=== PATIENT | male | born 1945 | race Caucasian/White ===

== ENCOUNTER 2016-10-18 18:36 | Inpatient (IN) ==
[2016-10-18] MEDS ORDERED: methylPREDNISolone 125 MG/2 ML VIAL IVP ONE (18:40)
[2016-10-18] MEDS ORDERED: Ipratropium/Albuterol Neb 3 ML IH ONE (18:40)
--- NOTE | 2016-10-18 18:44 | Emergency Department Note ---
Disposition Clinical Impression: Acute exacerbation of chronic obstructive airways disease Leukocytosis Qualifiers: Leukocytosis type: unspecified Qualified Code(s): D72.829 - Elevated white blood cell count, unspecified Disposition: Admitted As Inpatient Condition: Fair [facility]errals: [facility] [Primary Care Provider[facility] - Forms: ED Satisfaction Letter Time of Disposition: 19:55 SOB HPI - General Chief Complaint: ED Shortness of Breath/Dyspnea Stated Complaint: MIA Time Seen by Provider: 10/18/16 18:40 Source: patient, EMS Mode of arrival: EMS Limitations: no limitations Nursing Notes Reviewed: Yes Vital Signs Reviewed: Yes - History of Present Illness 70-year-old with a history COPD comes in with increasing shortness of breath. The patient is oxygen dependent usually uses 2-3 L when the squad arrived they found him at 80% on 4 L. It bumped him up to 6 L and he went up to 97 to get a DuoNeb. Continues to have some shortness of breath but is improved from initial presentation. Pt Subjective Complaint: shortness of breath Onset (ago): hour(s) Severity: moderate Improves with: oxygen, bronchodilators Worsens with: exertion Known history of: COPD Associated symptoms: Reports: cough, wheezing Treatment prior to arrival: oxygen, bronchodilator Cough present: Yes Cough Description: Involuntary Cough Frequency: Intermittent - Related Data Home Medications Medication Instructions Recorded Confirmed ARIPiprazole [Abilify] 10 mg PO DAILY 01/29/15 01/29/15 Albuterol Sulfate [Proair HFA] 2 puff IH Q4HR 01/29/15 01/29/15 Aspirin Enteric Coated [Aspirin EC] 81 mg PO DAILY 01/29/15 01/29/15 Budesonide/Formoterol 160/4.5 1 puff IH BID 01/29/15 01/29/15 [Symbicort] Carvedilol [Coreg] 6.25 mg PO BID 01/29/15 01/29/15 Citalopram [CeleXA] 20 mg PO DAILY 01/29/15 01/29/15 ClonazePAM [Klonopin] 0.25 mg PO BID 01/29/15 01/29/15 Furosemide [Lasix] 20 mg PO DAILY 01/29/15 01/29/15 Lisinopril [Zestril] 5 mg PO DAILY 01/29/15 01/29/15 Nicotine Polacrilex [Nicorette] 2 mg BC Q2H 01/29/15 01/29/15 Simvastatin [Zocor] 20 mg PO QPM 01/29/15 01/29/15 Tiotropium [Spiriva] 18 mcg IH DAILY 01/29/15 01/29/15 Previous Rx's Medication Instructions Recorded Ibuprofen [Motrin] 600 mg PO TID PRN #30 tab 04/29/16 Allergies Allergy/AdvReac Type Severity Reaction Status Date / Time clozapine Allergy See Verified 01/29/15 15:43 Comments haloperidol Allergy See Verified 01/29/15 15:43 Comments thioridazine Allergy See Verified 01/29/15 15:43 Comments All systems ED: reviewed and negative except as stated. Constitutional: Denies: fever, chills, weakness, weight change Eyes: Denies: eye pain, eye discharge, vision change ENT ED: Denies: ear pain, throat pain, dental pain, hearing loss, epistaxis, congestion, dysphagia Cardiovascular: Denies: chest pain, palpitations, dyspnea on exertion, edema, syncope Respiratory: Reports: cough, dyspnea, wheezes. Denies: hemoptysis, stridor Gastrointestinal: Denies: abdominal pain, nausea, vomiting, diarrhea, constipation, hematemesis, melena, hematochezia Genitourinary: Denies: urgency, dysuria, frequency, hematuria Musculoskeletal: Denies: back pain, neck pain, arthralgia, myalgia Integumentary: Denies: rash, abrasion, lesions Neurological: Denies: headache, weakness, numbness, paresthesias, confusion, abnormal gait, vertigo Psychiatric: Denies: anxiety, depression, suicidal thoughts, homicidal thoughts , auditory hallucinations, visual hallucinations Endocrine: Denies: fatigue Hematological/Lymphatic: Denies: easy bleeding, easy bruising Allergic/Immunologic: Denies: facial swelling, urticaria Past Medical History - Past Medical History Medical history: Reports: cardiomyopathy, CHF, COPD, coronary artery disease, hypertension Surgical history: Reports: pacemaker/AICD, other Psychiatric history: Reports: anxiety - Social History Smoking Status: Light tobacco smoker Smokeless Tobacco Status: No Alcohol use: Reports: none Drug use: Reports: none Physical Exam - General Limitations: no limitations General appearance: alert, in no apparent distress - Head Head exam: atraumatic, normocephalic, normal inspection - Eye Eye exam: Present: normal appearance, PERRL, EOMI - ENT ENT exam: normal exam, normal oropharynx, mucous membranes moist - Neck Neck exam: Present: normal inspection, full ROM, trachea midline - Chest Chest inspection: Present: normal inspection, symmetric chest wall rise - Respiratory Respiratory exam: Present: wheezes - Cardiovascular Cardiovascular exam: Present: regular rate, normal rhythm, normal heart sounds - Abdominal Exam Abdominal exam: Present: soft, Non-Tender. Absent: tenderness, distention, guarding, rebound, rigidity - Extremities Exam Extremities exam: Present: normal inspection, full ROM. Absent: tenderness, pedal edema - Expanded Lower Extremity Exam Neurovascular/Tendon exam: Absent: motor deficit, sensory deficit, tendon deficit Gait: not tested/not observed - Back Exam Back exam: Present: normal inspection, full ROM. Absent: tenderness - Neurological Exam Neurological exam: Present: alert, oriented X3 - Psychiatric Psychiatric exam: Present: normal affect, normal mood - Skin Skin exam: Present: warm, dry, intact, normal color Course - Reevaluation(s) Reevaluation #1: 70-year-old comes in complaining of increasing shortness of breath and exacerbation of COPD. 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 Chest x-ray that showed chronic opacities. His BNP was elevated at 755. There certainly may be a component of some overload in his lungs. Patient was given Lasix. Patient was noted to have a white count of 31.5. Patient was given antibiotics and will be admitted. The patient states he was feeling more short of breath syringa a blood gas and BiPAP. Time: 19:53 Vital Signs Temperature 97.7 F 10/18/16 18:40 Pulse Rate 90 10/18/16 18:40 Respiratory Rate 20 10/18/16 18:40 Blood Pressure 144/79 10/18/16 18:40 O2 Sat by Pulse Oximetry 90 10/18/16 18:40 Temperature 97.7 F 10/18/16 18:40 Pulse Rate 90 10/18/16 18:40 Respiratory Rate 22 10/18/16 18:49 Blood Pressure 144/79 10/18/16 18:40 O2 Sat by Pulse Oximetry 90 10/18/16 18:49 Oxygen Delivery Oxygen Delivery Room Air,Nasal Cannula Shortness of Breath/Dyspnea - Lab Data Lab results reviewed: Yes I reviewed the patient's lab results. Result diagrams: 10/18/16 18:57 10/18/16 18:57 Lab Results 10/18/16 10/18/16 10/18/16 Range/Units 18:57 18:57 18:57 WBC 31.9 H* (4.3-11.1) K/mcL RBC 5.01 (4.19-5.50) M/mcL Hgb 14.6 (12.9-16.9) g/dL Hct 43.7 (37.5-50.1) % MCV 87.2 (83.0-100.0) fL MCH 29.1 (28.0-33.3) pg MCHC 33.4 (31.6-35.5) g/dL RDW 12.9 (11.5-14.5) % Plt Count 200 (140-400) K/mcL MPV 9.4 (9.4-12.4) fL Immature Gran % 0.8 (0-4) % Seg Neutrophils % 93.1 % Lymphocytes % 1.0 % Monocytes % 5.0 % Eosinophils % 0.0 % Basophils % 0.1 % Neutrophils # 29.7 H (1.6-8.9) K/mcL Lymphocytes # 0.3 L (0.6-4.6) K/mcL Monocytes # 1.6 H (0.0-1.3) K/mcL Eosinophils # 0.0 (0.0-0.6) K/mcL Basophils # 0.0 (0.0-0.2) K/mcL Platelet Estimate Normal (Normal) Immature Plt Fraction 5.5 (1.1-6.1) % PT (9.4-12.1) Seconds INR APTT (26.0-36.0) Seconds Sodium 128 L (136-145) mEq/L Potassium 4.2 (3.5-4.5) mEq/L Chloride 90 L (98-109) mEq/L Carbon Dioxide 29 (19-29) mEq/L BUN 16 (8-26) mg/dL Creatinine 0.74 (0.72-1.25) mg/dL Est GFR ( Amer) > 60 (> 60) Est GFR (Non-Af Amer) > 60 (> 60) BUN/Creatinine Ratio 22 (6-26) Glucose 129 H (70-99) mg/dL Calculated Osmolality 269 L (280-300) Lactic Acid 1.1 (0.5-2.2) mmol/L Calcium 9.0 (8.6-10.8) mg/dL Troponin I (0-0.03) ng/mL B-Natriuretic Peptide (0-100) pg/mL 10/18/16 10/18/16 10/18/16 Range/Units 18:57 18:57 18:57 WBC (4.3-11.1) K/mcL RBC (4.19-5.50) M/mcL Hgb (12.9-16.9) g/dL Hct (37.5-50.1) % MCV (83.0-100.0) fL MCH (28.0-33.3) pg MCHC (31.6-35.5) g/dL RDW (11.5-14.5) % Plt Count (140-400) K/mcL MPV (9.4-12.4) fL Immature Gran % (0-4) % Seg Neutrophils % % Lymphocytes % % Monocytes % % Eosinophils % % Basophils % % Neutrophils # (1.6-8.9) K/mcL Lymphocytes # (0.6-4.6) K/mcL Monocytes # (0.0-1.3) K/mcL Eosinophils # (0.0-0.6) K/mcL Basophils # (0.0-0.2) K/mcL Platelet Estimate (Normal) Immature Plt Fraction (1.1-6.1) % PT 12.1 (9.4-12.1) Seconds INR 1.1 APTT 28.0 (26.0-36.0) Seconds Sodium (136-145) mEq/L Potassium (3.5-4.5) mEq/L Chloride (98-109) mEq/L Carbon Dioxide (19-29) mEq/L BUN (8-26) mg/dL Creatinine (0.72-1.25) mg/dL Est GFR ( Amer) (> 60) Est GFR (Non-Af Amer) (> 60) BUN/Creatinine Ratio (6-26) Glucose (70-99) mg/dL Calculated Osmolality (280-300) Lactic Acid (0.5-2.2) mmol/L Calcium (8.6-10.8) mg/dL Troponin I 0.08 H* (0-0.03) ng/mL B-Natriuretic Peptide 755 H (0-100) pg/mL - Radiology Data Radiology results reviewed: Yes I reviewed the patient's radiology results. Chest X-Ray 10/18/16 18:40 IMPRESSION: 1. No acute cardiopulmonary process. 2. Chronic interstitial opacities within the lungs bilaterally. As well as chronic left basilar scarring. D/ / Gomez Leach MD / Gomez Leach MD Interpreting Provider: Gomez Leach MD - EKG Data EKG attestation: Yes I reviewed and interpreted this EKG. EKG results narrative: Paced rhythm When compared to previous EKG there are: no significant changes (01/29/2015) Interpretation: Reports: no acute changes Critical Care Time Critical Care Time: Yes Total Critical Care Time: 30 Attestation: The high probability of a clinically significant, sudden or life threatening deterioration of the [respiratory] system(s) required my full and direct attention, intervention and personal management. The aggregate critical care time was [30] minutes. This time is in addition to time spent performing reported procedures but includes the following: [x] Data Review and interpretation [x] Patient assessment and monitoring of vital signs [x] Documentation [x] Medication orders and management
[2016-10-18 19:04] LABS: Basophils % 0.1 %; Hematocrit 43.7 % (37.5-50.1); Hemoglobin 14.6 g/dL (12.9-16.9); Immature Granulocytes % 0.8 % (0-4); Immature Platelets 5.5 % (1.1-6.1); Lymphocytes # 0.3 K/mcL (0.6-4.6); Mean Corpuscular HGB Conc 33.4 g/dL (31.6-35.5); Mean Corpuscular Hemoglobin 29.1 pg (28.0-33.3); Mean Corpuscular Volume 87.2 fL (83.0-100.0); Mean Platelet Volume 9.4 fL (9.4-12.4); Monocytes # 1.6 K/mcL (0.0-1.3); Neutrophils # 29.7 K/mcL (1.6-8.9); Platelet Count 200 K/mcL (140-400); Red Blood Count 5.01 M/mcL (4.19-5.50); Red Cell Distribution Width 12.9 % (11.5-14.5); Segmented Neutrophils % 93.1 %
[2016-10-18 19:10] LABS: INR 1.1; Prothrombin Time 12.1 Seconds (9.4-12.1)
[2016-10-18] MEDS ORDERED: Piperacillin/Tazobactam 3.375 GM in D5% in Water (Mini-Bag+) 100 ML IVPB ONE (19:10)
[2016-10-18] MEDS ORDERED: Vancomycin 1,000 MG in D5% in Water 250 ML IVPB ONE (19:10)
[2016-10-18 19:17] LABS: BUN/Creatinine Ratio 22 (6-26); Blood Urea Nitrogen 16 mg/dL (8-26); Carbon Dioxide 29 mEq/L (19-29); Chloride 90 mEq/L (98-109); Glucose 129 mg/dL (70-99); Osmolality,Calculated 269 (280-300); Potassium 4.2 mEq/L (3.5-4.5); Sodium 128 mEq/L (136-145); eGFR For African Americans > 60 (> 60); eGFR For Non-African Americans > 60 (> 60)
[2016-10-18] MEDS ORDERED: Aspirin 81 MG TAB.CHEW PO STA (19:30)
[2016-10-18 19:33] LABS: Platelet Estimate Normal (Normal)
[2016-10-18] MEDS ORDERED: Furosemide 40 MG/4 ML VIAL IVP ONE (19:42)
[2016-10-18 20:27] LABS: ABG Base Excess 3.3 mEq/L (-2.0 to 3.0); ABG HCO3 31.4 mEQ/L (21-27); ABG Oxygen Saturation 89 % (95-98); ABG PCO2 61 mmHg (35-45); ABG PH 7.32 pH Units (7.32-7.45); ABG PO2 61 mmHg (85-104); ABG TCO2 33.3 mEq/L (20-26); Blood Gas FiO2 32 %; Blood Gas Liter Flow 3 L/MIN
[2016-10-18] MEDS ORDERED: Ondansetron 4 MG/2 ML VIAL IVP PRN (20:58)
[2016-10-18] MEDS ORDERED: Acetaminophen 325 MG TABLET PO PRN (20:58)
[2016-10-18] MEDS ORDERED: Naloxone 0.4 MG/ML INJ IVP PRN (20:58)
[2016-10-18] MEDS ORDERED: *HR* Morphine 2 MG/ML SYRINGE IVP PRN (20:58)
[2016-10-18] MEDS ORDERED: *HR* HYDROcodone/Acet 5/325 mg TABLET PO PRN (20:58)
--- NOTE | 2016-10-18 21:11 | Event Note ---
Date of Encounter: 10/18/16 Time of Encounter: 21:08 Patient seen and examined with nurse practitioner. Healthcare associated pneumonia and COPD exacerbation. Patient with accessory muscle use during my interview and strippers. Patient is in hypercapnic respiratory failure. Arterial blood gas shows pH 7.32, PCO2 60 PO2 60 saturation 89% soul will start BiPAP support. close Monitoring of respiratory status. He is full-code. Vancomycin and Zosyn for pneumonia. IV steroids and nebulizer treatments.
--- NOTE | 2016-10-18 21:28 | Internal Med History&Physical ---
Date of Encounter: 10/18/16 Time of Encounter: 20:15 Assessment and Plan (1) HAP (hospital-acquired pneumonia) Current visit: Yes Status: Acute Patient presents with suspected hospital-acquired pneumonia related to his living at a [place] facility. Upon admission to ED patient's WBC was 31.9. Patient also was hypercapnic and in respiratory failure. IV Zosyn and IV vancomycin administered and ED and will be continued with IV Zosyn 3.375 g every 6 and IV vancomycin with pharmacy dosing. Patient placed on BiPAP for respiratory support and will receive IV Solu-Medrol 60 mg every 6 and DuoNebs every 4. Follow-up labs and timed lactic acids ordered. (2) Hypercapnic respiratory failure Current visit: Yes Status: Acute Patient presents with acute hypercapnic respiratory failure related to acute exacerbation of COPD and current suspected hospital-acquired pneumonia. Patient placed on BiPap support due to ABGs showing pH of 7.32, PCO2 of 60, PO2 of 60, and SpO2 of 89%. Patient's current SpO2 with BiPap is 95%. IV Solu-Medrol 60 mg every 6 and DuoNeb every 4 ordered. Patient's vital signs and respiratory status to be monitored closely. Qualifiers: Chronicity: acute Qualified Code(s): J96.02 - Acute respiratory failure with hypercapnia (3) Acute exacerbation of chronic obstructive airways disease Current visit: Yes Status: Acute Patient presents with acute exacerbation of chronic obstructive airways disease. Patient is currently hypercapnic respiratory failure with BiPAP support required. IV Solu-Medrol 60 mg every 6 ordered. DuoNebs every 4 ordered. Patient's respiratory status and vital signs to be monitored closely. (4) Leukocytosis Current visit: Yes Status: Acute Patient presents with acute leukocytosis with WBC of 31.9 from initial blood draw in ED. Follow-up labs ordered to monitor patient's WBC. IV Zosyn and vancomycin ordered in ED and will be continued. Patient will be monitored for increased signs of infection and sepsis with sepsis protocol being followed. Qualifiers: Leukocytosis type: unspecified Qualified Code(s): D72.829 - Elevated white blood cell count, unspecified (5) CAD (coronary artery disease) Current visit: Yes Status: Chronic Patient presents with history of CAD and pacemaker/AICD placement. Due to patient's current altered status due to hypercapnic respiratory failure, cardiac history is unavailable for confirmation. Patient's initial troponin was 0.08 on admission to ED. Patient's troponins to be trended x2. Continuous cardiac telemetry ordered. Patient to be monitored closely. Qualifiers: Coronary Disease-Associated Artery/Lesion type: unspecified vessel or lesion type [place] vs. transplanted heart: [place] heart Associated angina: angina presence unspecified Qualified Code(s): I25.10 - Atherosclerotic heart disease of [place] coronary artery without angina pectoris (6) DVT prophylaxis Current visit: Yes Status: Acute Patient to be placed on DVT prophylaxis due to admission protocol and current bed rest status. Heparin 5,000 units SQ Q8 ordered. Internal Medicine - H&P: HPI Chief complaint: SOB/Dyspnea Admitted From: Emergency Dept Plans for Post Hospital Care: Home History of present illness: Mr. Wolfe is a 70 year old male who presents from the ED with chief complaint of shortness of breath and dyspnea. When the squad arrived to his residence, he was at 80% on SpO2 on 4L of O2. Patient is O2 dependent. The squad increased his O2 to 6L and O2 saturation improved to 97%. Patient continued to have shortness of breath and hypoxia on admission to the ED and was placed on BiPap support. Initial labs showed patient's WBC was 31.9. Patient is currently in hypercapnic respiratory failure and presents with suspected hospital-acquired pneumonia. 1-View CXR today shows chronic interstitial opacities within the lungs bilaterally as well as chronic left basilar scarring. ABGs show his pH as 7.32, PCO2 as 60, and PO2 as 60 with O2 saturation at 89%. Patient has a medical history of cardiomyopathy, CHF, COPD, CAD, and HTN. During examination, patient is altered due to hypercapnic status and answers minimally. Patient's initial troponin is 0.08. Patient is at high risk for respiratory failure based on current status and infection and will be placed as inpatient with continuation of BiPap. IV Zosyn and vancomycin administered in the ED and will be continued with IV Zosyn 3.375 gm Q6 and IV vancomycin with pharmacy dosing. Troponins to be trended x2. Continuous cardiac telemetry ordered. Timed lactic acids ordered. Follow-up labs ordered. Patient to receive IV solumedrol 60 mg Q6. Patient to be monitored closely for respiratory distress and cardiac symptoms. Time spent with patient 30 minutes. Past Med Surg Social Fam HX - Past Medical History Source: old records reviewed Medical history: cardiomyopathy, CHF, COPD, coronary artery disease, hypertension Psychiatric history: anxiety - Past Surgical History Surgical History: pacemaker/AICD, other - Social History Smoking Status: Light tobacco smoker Smokeless Tobacco Status: No Alcohol use: none Drug use: none Internal Medicine - H&P: Meds ARIPiprazole [Abilify] 10 mg PO DAILY 01/29/15 [History] Albuterol Sulfate [Proair HFA] 2 puff IH Q4HR 01/29/15 [History] Aspirin Enteric Coated [Aspirin EC] 81 mg PO DAILY 01/29/15 [History] Budesonide/Formoterol 160/4.5 [Symbicort] 1 puff IH BID 01/29/15 [History] Carvedilol [Coreg] 6.25 mg PO BID 01/29/15 [History] Citalopram [CeleXA] 20 mg PO DAILY 01/29/15 [History] ClonazePAM [Klonopin] 0.25 mg PO BID 01/29/15 [History] Furosemide [Lasix] 20 mg PO DAILY 01/29/15 [History] Lisinopril [Zestril] 5 mg PO DAILY 01/29/15 [History] Nicotine Polacrilex [Nicorette] 2 mg BC Q2H 01/29/15 [History] Simvastatin [Zocor] 20 mg PO QPM 01/29/15 [History] Tiotropium [Spiriva] 18 mcg IH DAILY 01/29/15 [History] Ibuprofen [Motrin] 600 mg PO TID PRN #30 tab 04/29/16 [Rx] Allergies clozapine Allergy (Verified 01/29/15 15:43) See Comments "Just dont agree with me" haloperidol Allergy (Verified 01/29/15 15:43) See Comments "Just dont agree with me" thioridazine Allergy (Verified 01/29/15 15:43) See Comments "Just dont agree with me" ROS unobtainable: due to mental status All Systems PM: A 10-system review of systems was performed and is negative for pertinent findings except as documented above in the HPI. - Constitutional Vitals: Temp Pulse Resp BP Pulse Ox 97.7 F 77 25 96/62 96 10/18/16 18:40 10/18/16 20:23 10/18/16 20:59 10/18/16 20:59 10/18/16 20:26 General appearance: Present: A&O X 0, severe distress (Respiratory ) - Head Head exam: Present: atraumatic, normocephalic - Eye Eye exam: Present: conjuntiva pink, sclera anicteric - ENT ENT exam: Present: normal exam - Neck Neck exam general surgery: Present: supple, trachea midline. Absent: lymphadenopathy - Respiratory Respiratory exam: Present: accessory muscle use, respiratory distress - Cardiovascular Cardiovascular exam: Present: RRR, +S1, +S2. Absent: diastolic murmur, gallop, rubs, systolic murmur - GI/Abdominal GI/Abdominal exam: Present: normal bowel sounds, soft, no peritoneal signs. Absent: distended, tenderness - Rectal Rectal exam: Present: deferred - Additional comments: exam deferred. - Extremities Exam Extremities exam: Present: warm, radial pulses palpable and symetrical - Neurological Exam Neurological exam: Present: altered - Skin Skin exam: Present: dry, intact Internal Med - H&P Results - Labs CBC & Chem 7: 10/18/16 18:57 10/18/16 18:57 - EKG Data Prior EKG available for review: yes When compared to previous EKG: there is no significant change EKG comments: 10/18/16 21:34 EKG dated 01/29/15 shows electronic atrial pacemaker electronic ventricular pacemaker. Abnormal rhythm ECG. EKG dated 10/18/16 shows electronic ventricular pacemaker with abnormal rhythm ECG - Diagnostic Studies Chest x-ray Additional comments: Impressions Chest X-Ray 10/18/16 18:40 IMPRESSION: 1. No acute cardiopulmonary process. 2. Chronic interstitial opacities within the lungs bilaterally. As well as chronic left basilar scarring. D/ / Gomez Leach MD / Gomez Leach MD Interpreting Provider: Gomez Leach MD
[2016-10-18] MEDS: *HR* Heparin 5,000 UNIT/ML VIAL SQ SCH (23:44)
[2016-10-18] MEDS: methylPREDNISolone 125 MG/2 ML VIAL IVP SCH (23:45)
[2016-10-19] MEDS: Ipratropium/Albuterol Neb 3 ML IH SCH ×6 (00:10→19:45)
[2016-10-19 01:45] LABS: Basophils % 0.1 %; Red Cell Distribution Width 13.1 % (11.5-14.5)
[2016-10-19 01:47] LABS: Hematocrit 39.6 % (37.5-50.1); Hemoglobin 13.2 g/dL (12.9-16.9); Immature Granulocytes % 1.4 % (0-4); Lymphocytes # 0.3 K/mcL (0.6-4.6); Lymphocytes % 0.9 %; Mean Corpuscular HGB Conc 33.3 g/dL (31.6-35.5); Mean Corpuscular Hemoglobin 29.7 pg (28.0-33.3); Mean Platelet Volume 10.1 fL (9.4-12.4); Monocytes # 0.7 K/mcL (0.0-1.3); Monocytes % 2.4 %; Neutrophils # 28.5 K/mcL (1.6-8.9); Platelet Count 186 K/mcL (140-400); Red Blood Count 4.45 M/mcL (4.19-5.50); Segmented Neutrophils % 95.2 %
[2016-10-19 02:00] LABS: BUN/Creatinine Ratio 20 (6-26); Blood Urea Nitrogen 20 mg/dL (8-26); Calcium 8.6 mg/dL (8.6-10.8); Carbon Dioxide 30 mEq/L (19-29); Chloride 90 mEq/L (98-109); Chol/HDL Ratio 2.7 (0-4.9); Cholesterol 168 mg/dL (< 200); Glucose 145 mg/dL (70-99); HDL Cholesterol 63 mg/dL (40-59); LDL Cholesterol,Calculated 95 mg/dL (0-99); Magnesium 1.8 mg/dL (1.6-2.6); Osmolality,Calculated 265 (280-300); Potassium 4.4 mEq/L (3.5-4.5); Sodium 125 mEq/L (136-145); Triglycerides 48 mg/dL (< 150); eGFR For African Americans > 60 (> 60); eGFR For Non-African Americans > 60 (> 60)
[2016-10-19 02:11] LABS: Platelet Estimate Normal (Normal)
[2016-10-19] MEDS: methylPREDNISolone 125 MG/2 ML VIAL IVP SCH ×3 (06:03→17:01)
[2016-10-19] MEDS: Piperacillin/Tazobactam 3.375 GM in D5% in Water (Mini-Bag+) 100 ML IVPB SCH ×4 (06:03→21:14)
[2016-10-19] MEDS: Pantoprazole 40 MG VIAL IVP SCH (08:19)
[2016-10-19] MEDS: *HR* Heparin 5,000 UNIT/ML VIAL SQ SCH ×2 (08:19→17:01)
[2016-10-19] MEDS: Vancomycin 1,250 MG in D5% in Water 250 ML IVPB SCH ×2 (08:20→22:31)
[2016-10-19] MEDS ORDERED: Ibuprofen 600 MG TABLET PO PRN (11:06)
[2016-10-19] MEDS ORDERED: Nitroglycerin 0.4 MG TAB.SUBL SL PRN (11:06)
[2016-10-19] MEDS ORDERED: (Aripiprazole [Abilify Maintena] 400 MG) IM SCH (11:15)
[2016-10-19] MEDS: Tiotropium 18 MCG inhalation IH SCH (11:17)
[2016-10-19] MEDS: clonazePAM 0.5 MG TABLET PO SCH ×2 (11:28→21:13)
[2016-10-19] MEDS: Loratadine 10 MG TABLET PO SCH (11:28)
[2016-10-19] MEDS: Furosemide 20 MG TABLET PO SCH (11:28)
[2016-10-19] MEDS: Aspirin Enteric Coated 81 MG Tablet PO SCH ×2 (11:29→11:33)
[2016-10-19] MEDS: ARIPiprazole 10 MG TABLET PO SCH (11:29)
[2016-10-19] MEDS: Budesonide/Formoterol 160/4.5 MDI IH SCH ×2 (11:39→19:45)
--- NOTE | 2016-10-19 12:26 | Electrocardiograph Report ---
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
[2016-10-19] MEDS ORDERED: Piperacillin/Tazobactam 3.375 GM in D5% in Water (Mini-Bag+) 100 ML IVPB SCH (16:00)
--- NOTE | 2016-10-19 18:46 | Internal Med Progress Note ---
Date of Encounter: 10/19/16 Time of Encounter: 18:44 - Assessment and plan (1) Acute exacerbation of chronic obstructive airways disease Current Visit: Yes Status: Acute (2) HAP (hospital-acquired pneumonia) Current Visit: Yes Status: Acute (3) Hypercapnic respiratory failure Current Visit: Yes Status: Acute Qualifiers: Chronicity: acute Qualified Code(s): J96.02 - Acute respiratory failure with hypercapnia (4) DVT prophylaxis Current Visit: Yes Status: Acute (5) CAD (coronary artery disease) Current Visit: Yes Status: Chronic Qualifiers: Coronary Disease-Associated Artery/Lesion type: unspecified vessel or lesion type [place] vs. transplanted heart: [place] heart Associated angina: angina presence unspecified Qualified Code(s): I25.10 - Atherosclerotic heart disease of [place] coronary artery without angina pectoris - Subjective Interval history: New patient. Mr. Chester Wolfe is a 70-year-old male Patient presents with suspected hospital-acquired pneumonia related to his living at [place]. Upon admission to ED patient's WBC was 31.9. Patient also was hypercapnic and in respiratory failure. IV Zosyn and IV vancomycin administered and ED and will be continued with IV Zosyn 3.375 g every 6 and IV vancomycin with pharmacy dosing. Patient placed on BiPAP for respiratory support and will receive IV Solu-Medrol 60 mg every 6 and DuoNebs every 4. Usually was put on BiPAP but this morning BiPAP has been DC'd and he seems to be breathing very well. His CBC and CMP to be repeated. His sodium has gone down therefore I will stop IV fluids and put him on fluid restriction as his osmolalities is pretty low. Troponin was borderline high but repeat troponin did go up and it seems segment ischemia. He should be covered with beta itz and aspirin. - Constitutional Vitals: Temp Pulse Resp BP Pulse Ox 98.1 F 76 17 118/70 90 10/19/16 17:25 10/19/16 17:25 10/19/16 17:25 10/19/16 17:25 10/19/16 17:25 General appearance: Present: A&O X 0, severe distress (Respiratory ) - Head Head exam: Present: atraumatic, normocephalic - Eye Eye exam: Present: PERRL, conjuntiva pink, sclera anicteric Pupils: Present: PERRL - Neck Neck exam general surgery: Present: supple, trachea midline. Absent: lymphadenopathy - Respiratory Respiratory exam: Present: CTAB. Absent: accessory muscle use, rales, rhonchi, wheezes - Cardiovascular Cardiovascular exam: Present: RRR, +S1, +S2. Absent: diastolic murmur, gallop, rubs, systolic murmur - GI/Abdominal GI/Abdominal exam: Present: normal bowel sounds, soft, no peritoneal signs. Absent: distended, tenderness - Extremities Exam Extremities exam: Present: warm, radial pulses palpable and symetrical. Absent : calf tenderness, cyanotic, pedal edema - Neurological Exam Neurological exam: Present: CN II-XII intact, oriented X3, no focal deficits. Absent: pronater drift, facial droop, speech deficit - Skin Skin exam: Present: dry, intact Internal Medicine: Result - Labs CBC & Chem 7: 10/19/16 01:24 10/19/16 01:24 Labs: Short CBC 10/19/16 Range/Units 01:24 WBC 29.9 H (4.3-11.1) K/mcL Hgb 13.2 (12.9-16.9) g/dL Hct 39.6 (37.5-50.1) % Plt Count 186 (140-400) K/mcL Neutrophils # 28.5 H (1.6-8.9) K/mcL BMP 10/19/16 01:24 Sodium 125 L Potassium 4.4 Chloride 90 L Carbon Dioxide 30 H BUN 20 Creatinine 1.01 Glucose 145 H Calcium 8.6 Cardiac Enzymes 10/19/16 10/19/16 Range/Units 01:24 07:51 Troponin I 0.06 H* 0.05 H* (0-0.03) ng/mL - ABG Interpretation ABG results: ABG ABG pH 7.32 pH Units (7.32-7.45) 10/18/16 20:12 ABG pCO2 61 mmHg (35-45) H 10/18/16 20:12 ABG pO2 61 mmHg (85-104) L 10/18/16 20:12 ABG O2 Saturation 89 % (95-98) L 10/18/16 20:12 PT/INR, D-dimer PT 12.1 Seconds (9.4-12.1) 10/18/16 18:57 Consult Discharge Plan - Plan Referrals: Herb Carrizales MD [Partnered Physician] - (CARDIOLOGY MAKES THEIR OWN APPOINTMENTS, THEY WILL CALL THE PATIENT AT HOME WITH HIS APPOINTMENT) [facility] [Primary Care Provider] - 10/29/16 10:15 am ([facility] TEAM)
[2016-10-19] MEDS ORDERED: *HR* HYDROcodone/Acet 5/325 mg TABLET PO PRN (21:20)
[2016-10-19] MEDS ORDERED: Vancomycin 1,000 MG in D5% in Water 250 ML IVPB SCH (22:00)
[2016-10-20] MEDS: *HR* Heparin 5,000 UNIT/ML VIAL SQ SCH ×4 (00:04→23:15)
[2016-10-20] MEDS: methylPREDNISolone 125 MG/2 ML VIAL IVP SCH ×5 (00:04→23:15)
[2016-10-20] MEDS: Ipratropium/Albuterol Neb 3 ML IH SCH ×7 (00:23→23:26)
[2016-10-20] MEDS: Piperacillin/Tazobactam 3.375 GM in D5% in Water (Mini-Bag+) 100 ML IVPB SCH ×3 (04:35→19:43)
[2016-10-20] MEDS: Pantoprazole 40 MG VIAL IVP SCH (07:29)
[2016-10-20] MEDS: ARIPiprazole 10 MG TABLET PO SCH (07:31)
[2016-10-20] MEDS: Furosemide 20 MG TABLET PO SCH (07:31)
[2016-10-20] MEDS: Aspirin Enteric Coated 81 MG Tablet PO SCH (07:31)
[2016-10-20] MEDS: clonazePAM 0.5 MG TABLET PO SCH ×2 (07:31→19:42)
[2016-10-20] MEDS: Loratadine 10 MG TABLET PO SCH (07:31)
[2016-10-20] MEDS: Budesonide/Formoterol 160/4.5 MDI IH SCH ×2 (08:05→19:57)
[2016-10-20] MEDS: Tiotropium 18 MCG inhalation IH SCH (08:09)
[2016-10-20] MEDS ORDERED: Albuterol 2.5 MG/3 ML NEBULIZER IH PRN (08:22)
[2016-10-20 08:31] LABS: Basophils % 0.1 %; Hematocrit 37.7 % (37.5-50.1); Hemoglobin 12.8 g/dL (12.9-16.9); Lymphocytes # 0.3 K/mcL (0.6-4.6); Lymphocytes % 1.5 %; Mean Corpuscular Hemoglobin 29.2 pg (28.0-33.3); Mean Corpuscular Volume 86.1 fL (83.0-100.0); Mean Platelet Volume 10.4 fL (9.4-12.4); Monocytes # 0.7 K/mcL (0.0-1.3); Platelet Count 198 K/mcL (140-400); Red Blood Count 4.38 M/mcL (4.19-5.50); Red Cell Distribution Width 13.1 % (11.5-14.5); Segmented Neutrophils % 94.4 %
[2016-10-20 08:36] LABS: Neutrophils # 21.2 K/mcL (1.6-8.9)
[2016-10-20 08:41] LABS: Albumin 2.4 g/dL (3.5-5.0); Albumin/Globulin Ratio 0.7 (1.1-2.2); Bilirubin,Total 0.6 mg/dL (0.2-1.2); Calcium 8.6 mg/dL (8.6-10.8); Globulin 3.3 g/dL (2.4-3.5); Potassium 4.4 mEq/L (3.5-4.5); Total Protein 5.7 g/dL (6.0-8.3)
[2016-10-20 08:53] LABS: Platelet Estimate Normal (Normal)
[2016-10-20] MEDS ORDERED: Vancomycin 1 EACH in D5% in Water 250 ML IVPB PRN (08:53)
--- NOTE | 2016-10-20 14:02 | Internal Med Progress Note ---
<Jacky House - Last Filed: 10/20/16 15:34> Date of Encounter: 10/20/16 Time of Encounter: 09:10 - Assessment and plan (1) HAP (hospital-acquired pneumonia) Current Visit: Yes Status: Acute Assessment and plan: Chest x-ray revealed chronic interstitial bases. Patient was started on vancomycin and Zosyn. On admission patient's white blood cell count was 31.9. He was hypercapnic respiratory failure. Patient has been placed on BiPAP for respiratory support and he will also receive IV Solu-Medrol 60 mg every 6 hours and DuoNeb's every 4 hours. Patient's oxygen saturation this morning was 93. (2) Hypercapnic respiratory failure Current Visit: Yes Status: Acute Assessment and plan: Patient presented with acute hypercapnic respiratory failure related to an acute exacerbation of COPD. -He currently has suspected hospital-acquired pneumonia. -He was placed on BiPAP support due to arterial blood gas showing the following : PH of 7.32, PCO2 60, PO2 of 60, and SPO2 of 89%. -Monitor patient's vital signs and respiratory status closely. Qualifiers: Chronicity: acute Qualified Code(s): J96.02 - Acute respiratory failure with hypercapnia (3) Leukocytosis Current Visit: Yes Status: Acute Assessment and plan: Patient presented to the hospital with acute leukocytosis with white blood cell count 31.9. -Continue to monitor patient's white blood cells. -Patient is currently on IV antibiotics Zosyn and vancomycin. -Continue to monitor patient for signs of infection or sepsis. -Patient's white blood cell count this morning is 29.9. -He did not have increased in temperature or decrease in blood pressure. Qualifiers: Leukocytosis type: unspecified Qualified Code(s): D72.829 - Elevated white blood cell count, unspecified (4) CAD (coronary artery disease) Current Visit: Yes Status: Chronic Assessment and plan: Patient presented with a history of coronary artery disease. Patient has a pacemaker. Qualifiers: Coronary Disease-Associated Artery/Lesion type: unspecified vessel or lesion type [place] vs. transplanted heart: [place] heart Associated angina: angina presence unspecified Qualified Code(s): I25.10 - Atherosclerotic heart disease of [place] coronary artery without angina pectoris (5) DVT prophylaxis Current Visit: Yes Status: Acute Assessment and plan: Patient will be placed on DVT prophylaxis due to admission protocol and bedrest status. -Heparin 5000 units SQ every 8 hours ordered. - Subjective Interval history: Patient was seen and examined at bedside this morning. He states that he feels much better than he did on admission. He currently denies having any shortness of breath, although he does have some residual cough. He does have some mucus production with this cough, which is white/yellow appearance. He denies having any chest pain, nausea, vomiting, fevers, chills, or weakness. - Constitutional Vitals: Temp Pulse Resp BP Pulse Ox 97.6 F 71 16 146/78 95 10/20/16 10:28 10/20/16 10:28 10/20/16 11:33 10/20/16 10:28 10/20/16 11:33 General appearance: Present: A&O X 0, severe distress (Respiratory ) - Head Head exam: Present: normocephalic - ENT ENT exam: Present: mucous membranes moist - Respiratory Respiratory exam: Present: wheezes. Absent: chest wall tenderness, decreased breath sounds, rales, respiratory distress, rhonchi, tachypnea Additional comments: Expiratory wheezes present bilaterally in all lung dave. - Cardiovascular Cardiovascular exam: Present: RRR, +S1, +S2. Absent: diastolic murmur, gallop, rubs, systolic murmur - Extremities Exam Extremities exam: Present: normal inspection. Absent: pedal edema Internal Medicine: Result - Labs CBC & Chem 7: 10/20/16 08:10 10/20/16 08:10 Labs: Short CBC 10/20/16 Range/Units 08:10 WBC 22.4 H (4.3-11.1) K/mcL Hgb 12.8 L (12.9-16.9) g/dL Hct 37.7 (37.5-50.1) % Plt Count 198 (140-400) K/mcL Neutrophils # 21.2 H (1.6-8.9) K/mcL BMP 10/20/16 08:10 Sodium 122 L Potassium 4.4 Chloride 88 L Carbon Dioxide 27 BUN 49 H D Creatinine 1.59 H D Glucose 150 H Calcium 8.6 Liver Function 10/20/16 Range/Units 08:10 Total Bilirubin 0.6 (0.2-1.2) mg/dL AST 79 H (5-34) Units/L ALT 28 (0-55) Units/L Alkaline Phosphatase 210 H (38-126) Units/L Albumin 2.4 L (3.5-5.0) g/dL - ABG Interpretation ABG results: ABG ABG pH 7.32 pH Units (7.32-7.45) 10/18/16 20:12 ABG pCO2 61 mmHg (35-45) H 10/18/16 20:12 ABG pO2 61 mmHg (85-104) L 10/18/16 20:12 ABG O2 Saturation 89 % (95-98) L 10/18/16 20:12 PT/INR, D-dimer PT 12.1 Seconds (9.4-12.1) 10/18/16 18:57 Consult Discharge Plan - Plan Referrals: Herb Carrizales MD [Partnered Physician] - (CARDIOLOGY MAKES THEIR OWN APPOINTMENTS, THEY WILL CALL THE PATIENT AT HOME WITH HIS APPOINTMENT) [place],PCP [Primary Care Provider] - 10/29/16 10:15 am ([facility] TEAM) <Vasile Castro - Last Filed: 10/20/16 16:16> Date of Encounter: 10/20/16 - Constitutional Vitals: Temp Pulse Resp BP Pulse Ox 97.7 F 71 18 157/80 95 10/20/16 15:14 10/20/16 15:14 10/20/16 15:14 10/20/16 15:14 10/20/16 15:14 Internal Medicine: Result - Labs CBC & Chem 7: 10/20/16 08:10 10/20/16 08:10 Labs: Short CBC 10/20/16 Range/Units 08:10 WBC 22.4 H (4.3-11.1) K/mcL Hgb 12.8 L (12.9-16.9) g/dL Hct 37.7 (37.5-50.1) % Plt Count 198 (140-400) K/mcL Neutrophils # 21.2 H (1.6-8.9) K/mcL BMP 10/20/16 08:10 Sodium 122 L Potassium 4.4 Chloride 88 L Carbon Dioxide 27 BUN 49 H D Creatinine 1.59 H D Glucose 150 H Calcium 8.6 Liver Function 10/20/16 Range/Units 08:10 Total Bilirubin 0.6 (0.2-1.2) mg/dL AST 79 H (5-34) Units/L ALT 28 (0-55) Units/L Alkaline Phosphatase 210 H (38-126) Units/L Albumin 2.4 L (3.5-5.0) g/dL - ABG Interpretation ABG results: ABG ABG pH 7.32 pH Units (7.32-7.45) 10/18/16 20:12 ABG pCO2 61 mmHg (35-45) H 10/18/16 20:12 ABG pO2 61 mmHg (85-104) L 10/18/16 20:12 ABG O2 Saturation 89 % (95-98) L 10/18/16 20:12 PT/INR, D-dimer PT 12.1 Seconds (9.4-12.1) 10/18/16 18:57 - Attending Attestation I examined this patient and my medical decision-making was reviewed with the Resident Physician on 10/20/16. I agree with the documented findings, disposition and treatment plan as described except to the extent set forth below. Seen and evaluated at bedside 70 M with Hypercapneic respiratory failure requiring BIPAP support on admission , secondary to HCAP and COPDE Looks much more improved upon exam this morning However, he has MONIQUE and supra-therapeutic Vanco, he also has chronic hyponatremia which has slightly worsened He has a PMH of Schizophrenia, COPD, CAD, and is a resident of a longterm Physical exam is unremarkable, except for bilateral diffuse expiratory wheezing labs and Imaging reviewed [facility]-JKjbrkictrse-Wxnnywwndgxmvvkf Vancomycin level-Hold Vancomycin, Give IVF, repeat chem to monitor sodium-goal correction is 4meq in 24hrs, Continue psych meds, send sputum culture Rest as in resident's documentation
[2016-10-20 16:14] LABS: Calcium 8.5 mg/dL (8.6-10.8); Potassium 4.6 mEq/L (3.5-4.5)
[2016-10-21] MEDS: Piperacillin/Tazobactam 3.375 GM in D5% in Water (Mini-Bag+) 100 ML IVPB SCH ×3 (03:47→19:48)
[2016-10-21] MEDS: Ipratropium/Albuterol Neb 3 ML IH SCH ×6 (04:00→23:51)
[2016-10-21 05:03] LABS: Basophils % 0.1 %; Hematocrit 37.5 % (37.5-50.1); Hemoglobin 12.8 g/dL (12.9-16.9); Immature Granulocytes % 1.2 % (0-4); Lymphocytes # 0.3 K/mcL (0.6-4.6); Lymphocytes % 1.4 %; Mean Corpuscular HGB Conc 34.1 g/dL (31.6-35.5); Mean Corpuscular Hemoglobin 29.3 pg (28.0-33.3); Mean Corpuscular Volume 85.8 fL (83.0-100.0); Mean Platelet Volume 10.5 fL (9.4-12.4); Monocytes # 1.1 K/mcL (0.0-1.3); Monocytes % 5.7 %; Neutrophils # 16.9 K/mcL (1.6-8.9); Platelet Count 204 K/mcL (140-400); Red Blood Count 4.37 M/mcL (4.19-5.50); Segmented Neutrophils % 91.6 %
[2016-10-21 05:20] LABS: Alanine Aminotransferase 32 Units/L (0-55); Albumin 2.4 g/dL (3.5-5.0); Albumin/Globulin Ratio 0.8 (1.1-2.2); Alkaline Phosphatase 227 Units/L (38-126); Aspartate Amino Transferase 54 Units/L (5-34); BUN/Creatinine Ratio 31 (6-26); Bilirubin,Total 0.3 mg/dL (0.2-1.2); Blood Urea Nitrogen 44 mg/dL (8-26); Calcium 8.7 mg/dL (8.6-10.8); Carbon Dioxide 31 mEq/L (19-29); Chloride 91 mEq/L (98-109); Globulin 3.1 g/dL (2.4-3.5); Glucose 129 mg/dL (70-99); Osmolality,Calculated 277 (280-300); Potassium 4.4 mEq/L (3.5-4.5); Sodium 127 mEq/L (136-145); Total Protein 5.5 g/dL (6.0-8.3); eGFR For African Americans > 60 (> 60); eGFR For Non-African Americans 50 (> 60)
[2016-10-21] MEDS: predniSONE 20 MG TABLET PO SCH (08:04)
[2016-10-21] MEDS: ARIPiprazole 10 MG TABLET PO SCH (08:05)
[2016-10-21] MEDS: Loratadine 10 MG TABLET PO SCH (08:06)
[2016-10-21] MEDS: Furosemide 20 MG TABLET PO SCH (08:06)
[2016-10-21] MEDS: clonazePAM 0.5 MG TABLET PO SCH ×2 (08:06→19:47)
[2016-10-21] MEDS: Aspirin Enteric Coated 81 MG Tablet PO SCH (08:07)
[2016-10-21] MEDS: *HR* Heparin 5,000 UNIT/ML VIAL SQ SCH ×2 (08:07→16:21)
[2016-10-21] MEDS: Budesonide/Formoterol 160/4.5 MDI IH SCH ×2 (08:26→20:15)
[2016-10-21] MEDS ORDERED: Vancomycin 1,250 MG in D5% in Water 250 ML IVPB SCH (11:00)
[2016-10-21] MEDS: Vancomycin 1,000 MG in D5% in Water 250 ML IVPB SCH (11:10)
--- NOTE | 2016-10-21 13:04 | Internal Med Progress Note ---
<Jacky House - Last Filed: 10/21/16 15:34> Date of Encounter: 10/21/16 Time of Encounter: 09:00 - Assessment and plan (1) HAP (hospital-acquired pneumonia) Current Visit: Yes Status: Acute Assessment and plan: Chest x-ray revealed chronic interstitial bases. Patient was started on vancomycin and Zosyn. On admission patient's white blood cell count was 31.9. His white blood cell count has vastly improved. This morning blood cell count was 18.5. He was hypercapnic respiratory failure. Patient has been placed on BiPAP for respiratory support and he will also receive IV Solu-Medrol 60 mg every 6 hours and DuoNeb's every 4 hours. Patient's oxygen saturation this morning was 93. (2) Hypercapnic respiratory failure Current Visit: Yes Status: Acute Assessment and plan: Patient presented with acute hypercapnic respiratory failure related to an acute exacerbation of COPD. -He currently has suspected hospital-acquired pneumonia. -He was placed on BiPAP support due to arterial blood gas showing the following : PH of 7.32, PCO2 60, PO2 of 60, and SPO2 of 89%. -Monitor patient's vital signs and respiratory status closely. Qualifiers: Chronicity: acute Qualified Code(s): J96.02 - Acute respiratory failure with hypercapnia (3) Leukocytosis Current Visit: Yes Status: Acute Assessment and plan: Patient presented to the hospital with acute leukocytosis with white blood cell count 31.9. -Continue to monitor patient's white blood cells. -Patient is currently on IV antibiotics. Was on both Zosyn and vancomycin. Yesterday developed acute renal failure, possibly secondary to vancomycin use. Vancomycin was held. -Continue to monitor patient for signs of infection or sepsis. -Patient's white blood cell count this morning is 18.5. -He did not have increased in temperature or decrease in blood pressure. Qualifiers: Leukocytosis type: unspecified Qualified Code(s): D72.829 - Elevated white blood cell count, unspecified (4) CAD (coronary artery disease) Current Visit: Yes Status: Chronic Assessment and plan: Patient presented with a history of coronary artery disease. Patient has a pacemaker. Qualifiers: Coronary Disease-Associated Artery/Lesion type: unspecified vessel or lesion type [place] vs. transplanted heart: [place] heart Associated angina: angina presence unspecified Qualified Code(s): I25.10 - Atherosclerotic heart disease of [place] coronary artery without angina pectoris (5) DVT prophylaxis Current Visit: Yes Status: Acute Assessment and plan: Patient will be placed on DVT prophylaxis due to admission protocol and bedrest status. -Heparin 5000 units SQ every 8 hours ordered. (6) Hypertension Current Visit: Yes Status: Acute Assessment and plan: Patient's blood pressure has increased since admission. -This morning blood pressure was 161/87. -Patient takes several blood pressure medications at home. -Blood pressure medications were held. -One or more blood pressure meds will be resumed. Qualifiers: Qualified Code(s): I10 - Essential (primary) hypertension - Subjective Interval history: Patient was seen and examined at bedside this morning. He states that he feels much better than he did on admission. He currently denies having any shortness of breath, although he does have some residual cough. He does have some mucus production with this cough, which is white/yellow appearance. He denies having any chest pain, nausea, vomiting, fevers, chills, or weakness. - Constitutional Vitals: Temp Pulse Resp BP Pulse Ox 97.8 F 81 17 149/79 93 10/21/16 11:14 10/21/16 11:14 10/21/16 11:30 10/21/16 11:14 10/21/16 11:30 - Head Head exam: Present: atraumatic, normocephalic - Neck Neck exam general surgery: Present: supple, trachea midline. Absent: lymphadenopathy - Respiratory Respiratory exam: Present: wheezes. Absent: accessory muscle use, rales, rhonchi Additional comments: Mild expiratory wheezes present bilaterally. - Cardiovascular Cardiovascular exam: Present: RRR, +S1, +S2. Absent: diastolic murmur, gallop, rubs, systolic murmur - GI/Abdominal GI/Abdominal exam: Present: normal bowel sounds, soft, no peritoneal signs. Absent: distended, tenderness - Skin Skin exam: Present: dry, intact Internal Medicine: Result - Labs CBC & Chem 7: 10/21/16 04:41 10/21/16 04:41 Labs: Short CBC 10/21/16 Range/Units 04:41 WBC 18.5 H (4.3-11.1) K/mcL Hgb 12.8 L (12.9-16.9) g/dL Hct 37.5 (37.5-50.1) % Plt Count 204 (140-400) K/mcL Neutrophils # 16.9 H (1.6-8.9) K/mcL BMP 10/20/16 10/21/16 15:52 04:41 Sodium 124 L 127 L Potassium 4.6 H 4.4 Chloride 89 L 91 L Carbon Dioxide 29 31 H BUN 48 H 44 H Creatinine 1.51 H 1.41 H Glucose 136 H 129 H Calcium 8.5 L 8.7 Liver Function 10/21/16 Range/Units 04:41 Total Bilirubin 0.3 (0.2-1.2) mg/dL AST 54 H (5-34) Units/L ALT 32 (0-55) Units/L Alkaline Phosphatase 227 H (38-126) Units/L Albumin 2.4 L (3.5-5.0) g/dL - ABG Interpretation ABG results: ABG ABG pH 7.32 pH Units (7.32-7.45) 10/18/16 20:12 ABG pCO2 61 mmHg (35-45) H 10/18/16 20:12 ABG pO2 61 mmHg (85-104) L 10/18/16 20:12 ABG O2 Saturation 89 % (95-98) L 10/18/16 20:12 PT/INR, D-dimer PT 12.1 Seconds (9.4-12.1) 10/18/16 18:57 Consult Discharge Plan - Plan Referrals: Herb Carrizales MD [Partnered Physician] - (CARDIOLOGY MAKES THEIR OWN APPOINTMENTS, THEY WILL CALL THE PATIENT AT HOME WITH HIS APPOINTMENT) [place],PCP [Primary Care Provider] - 10/29/16 10:15 am ([facility] TEAM) <Vasile Castro - Last Filed: 10/21/16 16:39> Date of Encounter: 10/21/16 - Constitutional Vitals: Temp Pulse Resp BP Pulse Ox 97.5 F L 74 18 142/82 94 10/21/16 15:27 10/21/16 15:27 10/21/16 15:27 10/21/16 15:27 10/21/16 15:27 Internal Medicine: Result - Labs CBC & Chem 7: 10/21/16 04:41 10/21/16 04:41 Labs: Short CBC 10/21/16 Range/Units 04:41 WBC 18.5 H (4.3-11.1) K/mcL Hgb 12.8 L (12.9-16.9) g/dL Hct 37.5 (37.5-50.1) % Plt Count 204 (140-400) K/mcL Neutrophils # 16.9 H (1.6-8.9) K/mcL BMP 10/21/16 04:41 Sodium 127 L Potassium 4.4 Chloride 91 L Carbon Dioxide 31 H BUN 44 H Creatinine 1.41 H Glucose 129 H Calcium 8.7 Liver Function 10/21/16 Range/Units 04:41 Total Bilirubin 0.3 (0.2-1.2) mg/dL AST 54 H (5-34) Units/L ALT 32 (0-55) Units/L Alkaline Phosphatase 227 H (38-126) Units/L Albumin 2.4 L (3.5-5.0) g/dL - ABG Interpretation ABG results: ABG ABG pH 7.32 pH Units (7.32-7.45) 10/18/16 20:12 ABG pCO2 61 mmHg (35-45) H 10/18/16 20:12 ABG pO2 61 mmHg (85-104) L 10/18/16 20:12 ABG O2 Saturation 89 % (95-98) L 10/18/16 20:12 PT/INR, D-dimer PT 12.1 Seconds (9.4-12.1) 10/18/16 18:57 - Attending Attestation I examined this patient and my medical decision-making was reviewed with the Resident Physician on 10/21/16. I agree with the documented findings, disposition and treatment plan as described except to the extent set forth below. Seen and evaluated at bedside 70 M with Hypercapneic respiratory failure requiring BIPAP support on admission , secondary to HCAP and COPDE Looks much more improved upon exam this morning, denies new complains. However, on 10/20, he developed MONIQUE and supra-therapeutic Vanco level, he also has chronic hyponatremia which slightly worsened. He was given 500cc saline. His kidney function today has improved, he is receiving vancomycin at renal doses, and Zosyn. Prelim sputum culture unremarkable. His leukocytosis is improving He has a PMH of Schizophrenia, COPD, CAD, and is a resident of a [place] [facility] Physical exam is unremarkable, except for bilateral diffuse expiratory wheezing Labs and Imaging reviewed Hypercapneic respiratory failure improved, HCAP on treatment, MONIQUE-Hyponatremia- Supratherapeutic Vancomycin level-Improved. Resume blood pressure medications Rest as in resident's documentation
[2016-10-21] MEDS: amLODIPine 5 MG TABLET PO SCH (17:11)
[2016-10-22] MEDS: *HR* Heparin 5,000 UNIT/ML VIAL SQ SCH ×3 (00:37→16:18)
[2016-10-22] MEDS: Piperacillin/Tazobactam 3.375 GM in D5% in Water (Mini-Bag+) 100 ML IVPB SCH ×3 (04:00→20:09)
[2016-10-22 05:59] LABS: Basophils % 0.1 %; Hematocrit 36.9 % (37.5-50.1); Hemoglobin 12.5 g/dL (12.9-16.9); Immature Granulocytes % 1.7 % (0-4); Lymphocytes # 0.4 K/mcL (0.6-4.6); Lymphocytes % 2.1 %; Mean Corpuscular HGB Conc 33.9 g/dL (31.6-35.5); Mean Corpuscular Hemoglobin 29.5 pg (28.0-33.3); Mean Platelet Volume 11.3 fL (9.4-12.4); Monocytes % 9.8 %; Neutrophils # 17.4 K/mcL (1.6-8.9); Platelet Count 229 K/mcL (140-400); Red Blood Count 4.24 M/mcL (4.19-5.50); Red Cell Distribution Width 13.2 % (11.5-14.5); Segmented Neutrophils % 86.3 %
[2016-10-22] MEDS: Ipratropium/Albuterol Neb 3 ML IH SCH ×6 (06:23→23:05)
[2016-10-22 06:27] LABS: Alanine Aminotransferase 27 Units/L (0-55); Albumin 2.4 g/dL (3.5-5.0); Albumin/Globulin Ratio 0.9 (1.1-2.2); Alkaline Phosphatase 184 Units/L (38-126); Aspartate Amino Transferase 38 Units/L (5-34); BUN/Creatinine Ratio 28 (6-26); Bilirubin,Total 0.5 mg/dL (0.2-1.2); Blood Urea Nitrogen 34 mg/dL (8-26); Calcium 8.6 mg/dL (8.6-10.8); Carbon Dioxide 33 mEq/L (19-29); Chloride 91 mEq/L (98-109); Glucose 103 mg/dL (70-99); Osmolality,Calculated 272 (280-300); Potassium 4.5 mEq/L (3.5-4.5); Sodium 127 mEq/L (136-145); Total Protein 5.2 g/dL (6.0-8.3); eGFR For African Americans > 60 (> 60); eGFR For Non-African Americans 58 (> 60)
[2016-10-22 06:28] LABS: Globulin 2.8 g/dL (2.4-3.5)
[2016-10-22] MEDS: ARIPiprazole 10 MG TABLET PO SCH (08:21)
[2016-10-22] MEDS: Aspirin Enteric Coated 81 MG Tablet PO SCH (08:22)
[2016-10-22] MEDS: amLODIPine 5 MG TABLET PO SCH (08:25)
[2016-10-22] MEDS: clonazePAM 0.5 MG TABLET PO SCH ×2 (08:26→20:10)
[2016-10-22] MEDS: Loratadine 10 MG TABLET PO SCH (08:26)
[2016-10-22] MEDS: Furosemide 20 MG TABLET PO SCH (08:26)
[2016-10-22] MEDS: predniSONE 20 MG TABLET PO SCH (08:27)
[2016-10-22] MEDS: Budesonide/Formoterol 160/4.5 MDI IH SCH ×2 (11:14→19:44)
[2016-10-22] MEDS: Vancomycin 1,000 MG in D5% in Water 250 ML IVPB SCH (12:11)
--- NOTE | 2016-10-22 16:39 | Internal Med Progress Note ---
<Jacky House - Last Filed: 10/22/16 16:34> Date of Encounter: 10/22/16 Time of Encounter: 08:40 - Assessment and plan (1) HAP (hospital-acquired pneumonia) Current Visit: Yes Status: Acute Assessment and plan: Chest x-ray revealed chronic interstitial bases. Patient was started on vancomycin and Zosyn. On admission patient's white blood cell count was 31.9. His white blood cell count has vastly improved. This morning blood cell count was 20.1. He was hypercapnic respiratory failure. Patient has been placed on BiPAP for respiratory support and he will also receive IV Solu-Medrol 60 mg every 6 hours and DuoNeb's every 4 hours. Patient's oxygen saturation this morning was 93. (2) Hypercapnic respiratory failure Current Visit: Yes Status: Acute Assessment and plan: Patient presented with acute hypercapnic respiratory failure related to an acute exacerbation of COPD. -He currently has suspected hospital-acquired pneumonia. -He was placed on BiPAP support due to arterial blood gas showing the following : PH of 7.32, PCO2 60, PO2 of 60, and SPO2 of 89%. -Monitor patient's vital signs and respiratory status closely. Qualifiers: Chronicity: acute Qualified Code(s): J96.02 - Acute respiratory failure with hypercapnia (3) Leukocytosis Current Visit: Yes Status: Acute Assessment and plan: Patient presented to the hospital with acute leukocytosis with white blood cell count 31.9. -Continue to monitor patient's white blood cells. -Patient is currently on IV antibiotics. Was on both Zosyn and vancomycin. Yesterday developed acute renal failure, possibly secondary to vancomycin use. Vancomycin was held. -Continue to monitor patient for signs of infection or sepsis. -Patient's white blood cell count this morning is 20.1. -He did not have increased in temperature or decrease in blood pressure. Qualifiers: Leukocytosis type: unspecified Qualified Code(s): D72.829 - Elevated white blood cell count, unspecified (4) CAD (coronary artery disease) Current Visit: Yes Status: Chronic Assessment and plan: Patient presented with a history of coronary artery disease. Patient has a pacemaker. Qualifiers: Coronary Disease-Associated Artery/Lesion type: unspecified vessel or lesion type [place] vs. transplanted heart: [place] heart Associated angina: angina presence unspecified Qualified Code(s): I25.10 - Atherosclerotic heart disease of [place] coronary artery without angina pectoris (5) DVT prophylaxis Current Visit: Yes Status: Acute Assessment and plan: Patient will be placed on DVT prophylaxis due to admission protocol and bedrest status. -Heparin 5000 units SQ every 8 hours ordered. (6) Hypertension Current Visit: Yes Status: Acute Assessment and plan: Patient's blood pressure has increased since admission. -This morning blood pressure was 166/82. -Patient takes several blood pressure medications at home. -Blood pressure medications were held. -Amlodipine 10 mg as ordered. Qualifiers: Qualified Code(s): I10 - Essential (primary) hypertension - Subjective Interval history: Patient was seen and examined at bedside this morning. He states that he feels much better than he did on admission. Patient currently denies having any shortness of breath, although he does have some residual cough. He does have some mucus production with this cough, which is white/yellow appearance. He denies having any chest pain, nausea, vomiting, fevers, chills, or weakness. - Constitutional Vitals: Temp Pulse Resp BP Pulse Ox 97.6 F 71 16 167/85 98 10/22/16 11:22 10/22/16 11:22 10/22/16 11:22 10/22/16 11:22 10/22/16 11:22 General appearance: Present: A&O X 0, severe distress (Respiratory ) - Head Head exam: Present: atraumatic, normocephalic - Neck Neck exam general surgery: Present: supple, trachea midline. Absent: lymphadenopathy - Respiratory Respiratory exam: Present: CTAB. Absent: accessory muscle use, rales, rhonchi, wheezes Additional comments: Patient does not have expiratory wheezes today. Lung sounds are clear in all dave. - Cardiovascular Cardiovascular exam: Present: RRR, +S1, +S2. Absent: diastolic murmur, gallop, rubs, systolic murmur - Extremities Exam Extremities exam: Present: warm, radial pulses palpable and symetrical. Absent : calf tenderness, cyanotic, pedal edema - Skin Skin exam: Present: dry, intact Internal Medicine: Result - Labs CBC & Chem 7: 10/22/16 03:33 10/22/16 03:33 Labs: Short CBC 10/22/16 Range/Units 03:33 WBC 20.1 H (4.3-11.1) K/mcL Hgb 12.5 L (12.9-16.9) g/dL Hct 36.9 L (37.5-50.1) % Plt Count 229 (140-400) K/mcL Neutrophils # 17.4 H (1.6-8.9) K/mcL BMP 10/22/16 03:33 Sodium 127 L Potassium 4.5 Chloride 91 L Carbon Dioxide 33 H BUN 34 H D Creatinine 1.23 Glucose 103 H Calcium 8.6 Liver Function 10/22/16 Range/Units 03:33 Total Bilirubin 0.5 (0.2-1.2) mg/dL AST 38 H (5-34) Units/L ALT 27 (0-55) Units/L Alkaline Phosphatase 184 H (38-126) Units/L Albumin 2.4 L (3.5-5.0) g/dL - ABG Interpretation ABG results: ABG ABG pH 7.32 pH Units (7.32-7.45) 10/18/16 20:12 ABG pCO2 61 mmHg (35-45) H 10/18/16 20:12 ABG pO2 61 mmHg (85-104) L 10/18/16 20:12 ABG O2 Saturation 89 % (95-98) L 10/18/16 20:12 PT/INR, D-dimer PT 12.1 Seconds (9.4-12.1) 10/18/16 18:57 Consult Discharge Plan - Plan Referrals: Herb Carrizales MD [Partnered Physician] - (CARDIOLOGY MAKES THEIR OWN APPOINTMENTS, THEY WILL CALL THE PATIENT AT HOME WITH HIS APPOINTMENT) [facility] [Primary Care Provider] - 10/29/16 10:15 am ([facility] TEAM) <Vasile Castro - Last Filed: 10/22/16 16:56> Date of Encounter: 10/22/16 - Constitutional Vitals: Temp Pulse Resp BP Pulse Ox 97.6 F 71 18 167/85 92 10/22/16 11:22 10/22/16 11:22 10/22/16 15:53 10/22/16 11:22 10/22/16 15:53 Internal Medicine: Result - Labs CBC & Chem 7: 10/22/16 03:33 10/22/16 03:33 Labs: Short CBC 10/22/16 Range/Units 03:33 WBC 20.1 H (4.3-11.1) K/mcL Hgb 12.5 L (12.9-16.9) g/dL Hct 36.9 L (37.5-50.1) % Plt Count 229 (140-400) K/mcL Neutrophils # 17.4 H (1.6-8.9) K/mcL BMP 10/22/16 03:33 Sodium 127 L Potassium 4.5 Chloride 91 L Carbon Dioxide 33 H BUN 34 H D Creatinine 1.23 Glucose 103 H Calcium 8.6 Liver Function 10/22/16 Range/Units 03:33 Total Bilirubin 0.5 (0.2-1.2) mg/dL AST 38 H (5-34) Units/L ALT 27 (0-55) Units/L Alkaline Phosphatase 184 H (38-126) Units/L Albumin 2.4 L (3.5-5.0) g/dL - ABG Interpretation ABG results: ABG ABG pH 7.32 pH Units (7.32-7.45) 10/18/16 20:12 ABG pCO2 61 mmHg (35-45) H 10/18/16 20:12 ABG pO2 61 mmHg (85-104) L 10/18/16 20:12 ABG O2 Saturation 89 % (95-98) L 10/18/16 20:12 PT/INR, D-dimer PT 12.1 Seconds (9.4-12.1) 10/18/16 18:57 - Attending Attestation I examined this patient and my medical decision-making was reviewed with the Resident Physician on 10/22/16. I agree with the documented findings, disposition and treatment plan as described except to the extent set forth below. Seen and evaluated at bedside 70 M with Hypercapneic respiratory failure requiring BIPAP support on admission , secondary to HCAP and COPDE. He has a PMH of Schizophrenia, COPD, CAD, and is a resident of a alf He has no new complains on exam this morning, he is ambulatory and is not requiring supplemental O2. On 10/20, he developed MONIQUE and supra-therapeutic Vanco level, all have improved. Blood culture is negative, sputum culture is negative, repeat is pending. Patient is clinically improving Physical exam is unremarkable, chest is CTAB today, no acute abdomen findings, he has no pedal edema and is AAOX3. Labs and Imaging reviewed-slightly worsened leukocytosis, possibly from steroids , MONIQUE has resolved. Hypercapneic respiratory failure improved, HCAP on treatment, continue current antibiotics. LDY-Zrnfmaucexfu-Isbqejderfalhmte Vancomycin level-Improved. Continue and titrate blood pressure medications, continue other management Rest of details as in resident's documentation
[2016-10-23] MEDS: *HR* Heparin 5,000 UNIT/ML VIAL SQ SCH ×2 (00:31→08:09)
[2016-10-23] MEDS: Ipratropium/Albuterol Neb 3 ML IH SCH ×3 (04:17→11:06)
[2016-10-23] MEDS: Piperacillin/Tazobactam 3.375 GM in D5% in Water (Mini-Bag+) 100 ML IVPB SCH (04:31)
[2016-10-23 06:03] LABS: Basophils # 0.1 K/mcL (0.0-0.2); Basophils % 0.3 %; Hemoglobin 12.7 g/dL (12.9-16.9); Immature Granulocytes % 2.4 % (0-4); Lymphocytes # 0.8 K/mcL (0.6-4.6); Lymphocytes % 4.5 %; Mean Corpuscular HGB Conc 32.6 g/dL (31.6-35.5); Mean Corpuscular Hemoglobin 28.7 pg (28.0-33.3); Mean Corpuscular Volume 88.2 fL (83.0-100.0); Mean Platelet Volume 9.9 fL (9.4-12.4); Monocytes # 2.4 K/mcL (0.0-1.3); Monocytes % 14.1 %; Neutrophils # 13.4 K/mcL (1.6-8.9); Platelet Count 219 K/mcL (140-400); Red Blood Count 4.42 M/mcL (4.19-5.50); Red Cell Distribution Width 13.2 % (11.5-14.5); Segmented Neutrophils % 78.7 %
[2016-10-23 06:22] LABS: Alanine Aminotransferase 40 Units/L (0-55); Albumin 2.2 g/dL (3.5-5.0); Albumin/Globulin Ratio 0.8 (1.1-2.2); Alkaline Phosphatase 155 Units/L (38-126); Aspartate Amino Transferase 47 Units/L (5-34); BUN/Creatinine Ratio 24 (6-26); Bilirubin,Total 0.6 mg/dL (0.2-1.2); Blood Urea Nitrogen 24 mg/dL (8-26); Calcium 8.6 mg/dL (8.6-10.8); Carbon Dioxide 37 mEq/L (19-29); Chloride 92 mEq/L (98-109); Globulin 2.9 g/dL (2.4-3.5); Glucose 85 mg/dL (70-99); Osmolality,Calculated 275 (280-300); Potassium 4.7 mEq/L (3.5-4.5); Sodium 131 mEq/L (136-145); Total Protein 5.1 g/dL (6.0-8.3); eGFR For African Americans > 60 (> 60); eGFR For Non-African Americans > 60 (> 60)
[2016-10-23] MEDS: Furosemide 20 MG TABLET PO SCH (08:07)
[2016-10-23] MEDS: amLODIPine 5 MG TABLET PO SCH (08:08)
[2016-10-23] MEDS: predniSONE 20 MG TABLET PO SCH (08:08)
[2016-10-23] MEDS: Loratadine 10 MG TABLET PO SCH (08:08)
[2016-10-23] MEDS: ARIPiprazole 10 MG TABLET PO SCH (08:08)
[2016-10-23] MEDS: clonazePAM 0.5 MG TABLET PO SCH (08:08)
[2016-10-23] MEDS: Aspirin Enteric Coated 81 MG Tablet PO SCH (08:08)
[2016-10-23] MEDS: Budesonide/Formoterol 160/4.5 MDI IH SCH (08:21)
[2016-10-23 08:45] VITALS: BP 171/85
--- NOTE | 2016-10-23 09:44 | Discharge Summary ---
<Jacky House - Last Filed: 10/23/16 11:53> Date of Encounter: 10/23/16 Time of Encounter: 09:30 - Discharge Diagnosis (1) HAP (hospital-acquired pneumonia) Priority: Primary Status: Acute Comments: Patient presented with shortness of breath. Chest x-ray was performed, which revealed chronic interstitial infiltrates. -Patient was initially started on vancomycin and Zosyn. -On admission, patient's white blood cell count was 31.9. Patient had no other signs of sepsis. -His white blood cell count began to decrease during his hospital. On date of discharge his white blood cell count is 17.0. -On presentation patient was in hypercapnic respiratory failure. Patient was placed on BiPAP for respiratory support. Patient's oxygen saturation is currently 97. -Patient had productive cough with yellow sputum. During his stay in the hospital, his condition improved. He denies shortness of breath and chest pain. -Patient given levaquin for 6 days, prescribed 2 more doses after discharge. 750 mg PO once daily. (2) Hypercapnic respiratory failure Priority: Secondary Status: Acute Comments: Patient presented to the hospital with acute hypercapnic respiratory failure related to an acute exacerbation of COPD. -He currently has suspected hospital-acquired pneumonia. -Patient is being treated with antibiotics. -His condition has improved since arrival to hospital. -Vital signs were closely monitored during his stay. Qualifiers: Chronicity: acute Qualified Code(s): J96.02 - Acute respiratory failure with hypercapnia (3) Leukocytosis Priority: Secondary Status: Acute Comments: Patient presents to the hospital with acute leukocytosis with a white count of 31.9. White blood cells were closely monitored during his stay. Patient was given IV antibiotics, Zosyn and vancomycin. -Vancomycin was discontinued due to acute renal failure. -Patient's white count decreased during his stay in the hospital. -On date of discharge his white count is 17.0. Qualifiers: Leukocytosis type: unspecified Qualified Code(s): D72.829 - Elevated white blood cell count, unspecified (4) CAD (coronary artery disease) Priority: Secondary Status: Chronic Comments: She presents with a history of coronary artery disease. Patient has a pacemaker. Qualifiers: Coronary Disease-Associated Artery/Lesion type: unspecified vessel or lesion type [place] vs. transplanted heart: [place] heart Associated angina: angina presence unspecified Qualified Code(s): I25.10 - Atherosclerotic heart disease of [place] coronary artery without angina pectoris (5) DVT prophylaxis Priority: Secondary Status: Acute Comments: Patient was placed on DVT prophylaxis due to admission protocol and bed rest status. Heparin 5000 units SQ every 8 hours was ordered. (6) Hypertension Priority: Secondary Status: Acute Comments: Patient's blood pressure initially increased since admission. -His blood pressure went as high as 166/82. Patient takes several blood pressure medications at home. -Blood pressure medications were initially held. -Amlodipine 10 mg was ordered to treat patient's hypertension. -Patient's blood pressure on date of discharge is 152/76. Qualifiers: Qualified Code(s): I10 - Essential (primary) hypertension - Discharge Medications Prescriptions: Levofloxacin [Levaquin] 750 mg PO DAILY #2 tablet Home Medications: ARIPiprazole [Abilify] 10 mg PO DAILY 01/29/15 [History] Albuterol Sulfate [Proair HFA] 2 puff IH Q4HR 01/29/15 [History] Aspirin Enteric Coated [Aspirin EC] 81 mg PO DAILY 01/29/15 [History] Budesonide/Formoterol 160/4.5 [Symbicort] 1 puff IH BID 01/29/15 [History] Carvedilol [Coreg] 12.5 mg PO BID 01/29/15 [History] Citalopram [CeleXA] 20 mg PO DAILY 01/29/15 [History] ClonazePAM [Klonopin] 0.25 mg PO BID 01/29/15 [History] Furosemide [Lasix] 20 mg PO DAILY 01/29/15 [History] Lisinopril [Zestril] 5 mg PO DAILY 01/29/15 [History] Tiotropium [Spiriva] 18 mcg IH DAILY 01/29/15 [History] Ibuprofen [Motrin] 600 mg PO TID PRN #30 tab 04/29/16 [Rx] Aripiprazole [Abilify Maintena] 400 mg IM QMONTH 10/19/16 [History] Atorvastatin [Lipitor] 40 mg PO HS 10/19/16 [History] Loratadine [Allergy Relief] 10 mg PO DAILY 10/19/16 [History] Nitroglycerin [Nitrostat] 0.4 mg SL AD PRN 10/19/16 [History] Levofloxacin [Levaquin] 750 mg PO DAILY #2 tablet 10/23/16 [Rx] Allergies/Adverse Reactions: Allergies clozapine Allergy (Verified 01/29/15 15:43) See Comments "Just dont agree with me" haloperidol Allergy (Verified 01/29/15 15:43) See Comments "Just dont agree with me" thioridazine Allergy (Verified 01/29/15 15:43) See Comments "Just dont agree with me" Date of admission: 10/18/16 20:18 [facility] Consults: 10/18/16 21:03 Consult to Crew Leader/Control Room Operator [CONS] Routine Reason for SW Consult: Unsure of patient's home or residence Discharging clinician: Jacky House Anticipated date of discharge: 10/23/16 - Patient Status Disposition: Transfer Other Condition: Good Overall status at discharge: patient is progressing back to baseline - Discharge Instructions Instructions: Pneumonia (DC) Follow Up With: Herb Carrizales MD [Partnered Physician] - (CARDIOLOGY MAKES THEIR OWN APPOINTMENTS, THEY WILL CALL THE PATIENT AT HOME WITH HIS APPOINTMENT) [place],PCP [Primary Care Provider] - 10/29/16 10:15 am ([facility] TEAM) - Diet and Activity Activity: increase activity as tolerated Diet: advance to your usual diet Hospital course: Mr. Wolfe is a 70 year old male - Time Spent with Patient Total time spent providing and/or coordinating discharge services: Greater than 30 minutes - Constitutional Vitals: Temp Pulse Resp BP Pulse Ox 97.7 F 73 20 171/85 90 10/23/16 08:44 10/23/16 08:44 10/23/16 08:44 10/23/16 08:44 10/23/16 08:44 General appearance: Present: A&O X 0, severe distress (Respiratory ) - ENT ENT exam: Present: mucous membranes dry - Respiratory Respiratory exam: Present: CTAB. Absent: accessory muscle use, rales, rhonchi, wheezes Additional comments: Patient initially had prominent expiratory wheezes, but this has since subsided. - Cardiovascular Cardiovascular exam: Present: RRR, +S1, +S2. Absent: diastolic murmur, gallop, rubs, systolic murmur - Extremities Exam Extremities exam: Present: warm, radial pulses palpable and symetrical - Psychiatric Psychiatric exam: Present: normal affect, normal mood <Ishola,Vasile T - Last Filed: 10/23/16 13:04> Date of Encounter: 10/23/16 Date of admission: 10/18/16 20:18 [facility] physician[facility] Consults: 10/18/16 21:03 Consult to Crew Leader/Control Room Operator [CONS] Routine Reason for SW Consult: Unsure of patient's home or residence Hospital course: Mr. Wolfe is a 70 year old male - Time Spent with Patient Total time spent providing and/or coordinating discharge services: - Constitutional Vitals: Temp Pulse Resp BP Pulse Ox 97.7 F 73 20 171/85 98 10/23/16 08:44 10/23/16 08:44 10/23/16 11:07 10/23/16 08:44 10/23/16 11:07 - Attending Attestation I examined this patient and my medical decision-making was reviewed with the Resident Physician on 10/23/16. I agree with the documented findings, disposition and treatment plan as described except to the extent set forth below. Seen and evaluated at bedside 70 M with Hypercapneic respiratory failure requiring BIPAP support on admission , secondary to HCAP and COPDE. He has a PMH of Schizophrenia, COPD, CAD, and is a resident of a skilled nursing He has no new complains on exam this morning, he is ambulatory and is not requiring supplemental O2. On 10/20, he developed MONIQUE and supra-therapeutic Vanco level, all have improved. Blood culture is negative, sputum culture is negative, no pathogenic josué documented Patient has made significant clinical improvement Physical exam is unremarkable, chest is CTAB today, no acute abdomen findings, he has no pedal edema and is AAOX3. Labs and Imaging reviewed-MONIQUE resolved, leukocytosis has improved to 17 from 20 , cultures are negative He has received 6 days of IV Vanco and zosyn in-patient He is stable to be discharged back to skilled nursing on 2 more days of levofloxacin Plan of care discussed with patient, verbalized understanding Rest of details as in resident physician's documentation.
[2016-10-23] MEDS ORDERED: Vancomycin 1,250 MG in D5% in Water 250 ML IVPB SCH (11:00)
[2016-10-23] MEDS ORDERED: Aminoglycoside Consult 1 EACH MC ONE (13:37)
== END 2016-10-23 13:38 | disposition other institution (70) | DRG 189 ==
LOC: EMEROO 18:36 → 2NNU 20:18 → SUATTDRO 20:18 → 2NNU 21:29 → 2ANU 10-19 11:59
PROVIDERS: ADMIT Hospitalist; ATTEND Internal Medicine